=== PATIENT | female | born 1990 | race Caucasian/White ===

== ENCOUNTER 2021-08-30 17:56 | Inpatient (IN) ==
[2021-08-30] MEDS ORDERED: Dinoprostone 10 MG VAG.SUPP VAGINAL ONE (18:59)
[2021-08-30] MEDS ORDERED: Buffered Lidocaine 1% SYRIN 1 ml INTRADERM ONE (18:59)
[2021-08-30] MEDS ORDERED: Lactated Ringers 1000 ml BAG 1,000 ML IV ONE (18:59)
[2021-08-30] MEDS ORDERED: Lactated Ringers 1000 ml BAG 1,000 ML IV SCH (19:00)
[2021-08-30 20:27] LABS: Urine Appearance Cloudy; Urine Bilirubin Negative (Negative); Urine Blood Negative (Negative); Urine Color Straw; Urine Glucose Negative (Negative); Urine Ketones Negative (Negative); Urine Nitrite Negative (Negative); Urine Protein Negative (Negative); Urine Specific Gravity 1.009 (1.002-1.030); Urine Urobilinogen Negative (Negative)
[2021-08-30 20:37] LABS: Urine Benzodiazepine Screen None Detected (None Detect); Urine Cannabinoids Screen Presumptive Positive (None Detect); Urine Opiates Screen None Detected (None Detect)
[2021-08-30 22:46] LABS: Hematocrit 36 % (35-47); Hemoglobin 12.4 g/dL (12.0-16.0); Mean Corpuscular HGB Conc 34 g/dL (31-36); Mean Corpuscular Hemoglobin 31 pg (27-31); Mean Corpuscular Volume 90 fL (80-97); Mean Platelet Volume 11.5 fL (7.4-10.4); Red Blood Count 4.01 10^6 /uL (3.70-4.87); Red Cell Distribution Width 14 % (10-15); White Blood Count 9.7 10^3/uL (3.5-10.8)
[2021-08-30 22:47] LABS: ABS Basophils 0.1 10^3/ul (0-0.2); ABS Lymphocytes 3.2 10^3/ul (1.0-4.8); ABS Monocytes 0.6 10^3/ul (0-0.8); ABS Neutrophils 5.7 10^3/ul (1.5-7.7); Eosinophil % 0.5 %; Lymphocyte % 33.2 %; Nucleated Red Blood Cells % 0.1
[2021-08-30 23:15] LABS: Albumin 3.1 g/dL (3.2-5.2); Albumin/Globulin Ratio 1.2 (1-3); Globulin 2.6 g/dL (2-4); Potassium 3.9 mmol/L (3.5-5.0); Total Bilirubin 0.3 mg/dL (0.2-1.0); Total Protein 5.7 g/dL (6.4-8.9); Uric Acid 5.5 mg/dL (2.3-6.6)
[2021-08-31 05:33] LABS: Large Platelets Present
[2021-08-31 05:37] LABS: Platelet Count 210 10^3/uL (150-450)
[2021-08-31] MEDS ORDERED: Labetalol IV 5 MG/ML 20 ml VIAL IV PUSH ONE (07:27)
[2021-08-31] MEDS ORDERED: Dinoprostone 10 MG VAG.SUPP VAGINAL ONE (20:10)
[2021-08-31] MEDS ORDERED: Promethazine INJ(RESTRICTED) 25 MG/ML 1 ml VIAL IV PRN (20:31)
[2021-08-31] MEDS ORDERED: Nalbuphine 10 MG/ML 1 ML VIAL IV PRN (20:32)
[2021-09-01] MEDS ORDERED: Labetalol IV 5 MG/ML 20 ml VIAL IV PUSH ONE (00:16)
[2021-09-01] MEDS ORDERED: Lactated Ringers 500 ml BAG 500 ML IV ONE (00:24)
[2021-09-01] MEDS ORDERED: Promethazine INJ(RESTRICTED) 25 MG/ML 1 ml VIAL IV PRN (08:58)
[2021-09-01] MEDS ORDERED: NALBUPHINE 20 MG/ML IV PRN (08:58)
[2021-09-01] MEDS ORDERED: Nalbuphine 10 MG/ML 1 ML VIAL IV PRN (09:05)
[2021-09-01] MEDS ORDERED: Oxytocin in LR 20 UNITS/1,000 ML BAG IVPB SCH (16:00)
[2021-09-01] MEDS ORDERED: Lidocaine 4% GEL 10 GM TUBE ONE (19:34)
[2021-09-01] MEDS ORDERED: Lidocaine 2% JELLY 6 ML TOPICAL ONE (19:39)
[2021-09-01] MEDS ORDERED: OBEPIDURAL (200 ML) 200 ML EPIDURAL ONE (20:19)
[2021-09-01 20:41] LABS: Mean Platelet Volume 11.3 fL (7.4-10.4); Platelet Count 164 10^3/uL (150-450)
[2021-09-01 21:06] LABS: Albumin 3.2 g/dL (3.2-5.2); Calcium 8.6 mg/dL (8.6-10.3); Globulin 3.1 g/dL (2-4); Potassium 4.1 mmol/L (3.5-5.0); Total Bilirubin 0.5 mg/dL (0.2-1.0); Total Protein 6.3 g/dL (6.4-8.9); Uric Acid 6.2 mg/dL (2.3-6.6); eGFR CKD-EPI 102.2 (>60)
[2021-09-01] MEDS ORDERED: Famotidine IV 10 MG/ML 2 ml VIAL (20 mg) IV SLOW PU ONE (21:59)
[2021-09-01] MEDS ORDERED: Calcium Carb (TUMS) 500 mg CHEW TAB PO PRN (21:59)
[2021-09-01 22:14] LABS: Urine Appearance Clear; Urine Bilirubin Negative (Negative); Urine Blood 1+ (Negative); Urine Color Yellow; Urine Glucose Negative (Negative); Urine Ketones Negative (Negative); Urine Nitrite Negative (Negative); Urine Protein Negative (Negative); Urine Specific Gravity 1.015 (1.002-1.030); Urine Urobilinogen Negative (Negative)
[2021-09-01 22:18] LABS: Urine Bacteria 1+ (Absent); Urine Red Blood Cell 2+(6-10/hpf) (Absent); Urine Squamous Epithelial Cell Present (Absent); Urine White Blood Cell Trace(0-5/hpf) (Absent)
[2021-09-01] MEDS ORDERED: Ondansetron 4 mg VIAL 2 MG/ML 2 ml VIAL IV PRN (22:47)
[2021-09-01] MEDS ORDERED: Penicillin G Potassium IV 5,000,000 UNITS in NS 0.9% 100 ml BAG 100 ML IVPB ONE (23:30)
[2021-09-02] MEDS ORDERED: Labetalol IV 5 MG/ML 20 ml VIAL IV PUSH ONE ×2 (02:09→03:12)
[2021-09-02] MEDS: Penicillin G Potassium IV 3,000,000 UNITS in NS 0.9% 100 ml BAG 100 ML IVPB SCH ×2 (03:23→10:47)
[2021-09-02] MEDS ORDERED: Glycerin ADULT 2.4 gm SUPP PR PRN (04:18)
[2021-09-02] MEDS ORDERED: Oxytocin in LR 20 UNITS/1,000 ML BAG IVPB SCH (05:00)
[2021-09-02] MEDS ORDERED: Lactated Ringers 1000 ml BAG 1,000 ML IV SCH (05:00)
[2021-09-02] MEDS ORDERED: Lidocaine 1% MPF 5 ML VIAL ONE (06:46)
[2021-09-02] MEDS: Dibucaine 1% OINT 28.35 GM TUBE PR PRN ×2 (08:17→22:05)
[2021-09-02] MEDS: Witch Hazel PAD JAR TOPICAL PRN (08:17)
[2021-09-02] MEDS ORDERED: Varicella Virus Vaccine Live 0.5 ML VIAL SUBCUT ONE (09:00)
[2021-09-03 06:32] LABS: ABS Eosinophils 0.1 10^3/ul (0-0.6); ABS Lymphocytes 3.4 10^3/ul (1.0-4.8); ABS Monocytes 0.7 10^3/ul (0-0.8); ABS Neutrophils 6.4 10^3/ul (1.5-7.7); Eosinophil % 0.6 %; Hematocrit 29 % (35-47); Hemoglobin 9.9 g/dL (12.0-16.0); Lymphocyte % 32.1 %; Mean Corpuscular HGB Conc 35 g/dL (31-36); Mean Corpuscular Hemoglobin 32 pg (27-31); Mean Corpuscular Volume 92 fL (80-97); Mean Platelet Volume 10.9 fL (7.4-10.4); Nucleated Red Blood Cells % 0.1; Platelet Count 114 10^3/uL (150-450); Red Cell Distribution Width 14 % (10-15); White Blood Count 10.6 10^3/uL (3.5-10.8)
[2021-09-03] MEDS: Dibucaine 1% OINT 28.35 GM TUBE PR PRN (19:35)
[2021-09-03] MEDS: Witch Hazel PAD JAR TOPICAL PRN (19:35)
[2021-09-04 13:26] VITALS: BP 150/98
== END 2021-09-04 13:05 | disposition home or self-care (01) | DRG 560 ==
LOC: MCHOBOUT 17:56 → MCHOB 19:04
PROVIDERS: ADMIT Midwife; ATTEND Midwife